=== PATIENT | male | born 1970 | race Two or more races ===

== ENCOUNTER 2018-07-14 19:43 | Inpatient (IN) | payer BC, OTHER, SELFPAY ==
[~2018-07-14] VITALS: Ht 170.2 cm; Wt 91.2 kg
[2018-07-14] MEDS ORDERED: SODIUM CHLORIDE 0.9% 1,000ML IVBOLUS ONE (20:30)
[2018-07-14] MEDS ORDERED: SODIUM CHLORIDE FLUSH 10ML SYR IVF ONE (20:30)
[2018-07-14 20:43] LABS: ALBUMIN 3.4 g/dL (3.4-5.0); ANION GAP 11 mmol/L (5-15); CALCIUM 8.8 mg/dL (8.5-10.1); CHLORIDE 112 mmol/L (98-107)
[2018-07-14 20:46] LABS: ALANINE AMINOTRANSFERASE 24 U/L (12-78); ALKALINE PHOSPHATASE 121 U/L (45-117); BILIRUBIN,TOTAL 0.5 mg/dL (0.2-1.0); CREATININE 9.14 mg/dL (0.7-1.3); TOTAL PROTEIN 8.6 g/dL (6.4-8.2)
[2018-07-14 20:50] LABS: BASOPHILS # (AUTO) 0.01 x10^3/uL (0-0.1); BASOPHILS % (AUTO) 0 % (0-1); EOSINOPHILS # (AUTO) 0.14 x10^3/uL (0-0.4); EOSINOPHILS % (AUTO) 2 % (1-7); LYMPHOCYTES # (AUTO) 0.59 x10^3/uL (1-3.4); LYMPHOCYTES % (AUTO) 8 % (22-44); MD SCAN; MEAN CORPUSCULAR HEMOGLOBIN 29.3 pg (27.5-34.5); MEAN CORPUSCULAR HGB CONC 33.9 g/dL (33.2-36.2); MEAN CORPUSCULAR VOLUME 86.4 fL (81-97); MEAN PLATELET VOLUME 11.7 fL (7.4-10.4); MONOCYTES # (AUTO) 0.52 x10^3/uL (0.2-0.8); MONOCYTES % (AUTO) 7 % (2-9); NEUTROPHILS # (AUTO) 6.26 x10^3/uL (1.8-6.8); NEUTROPHILS % (AUTO) 83 % (42-75); PLATELET COUNT 195 x10^3/uL (130-400); RED BLOOD COUNT 4.94 x10^6/uL (4.38-5.82); RED CELL DISTRIBUTION WIDTH 13.9 % (9.4-14.8)
[2018-07-14 20:52] LABS: CULTURE INDICATED? NO; MICROSCOPIC INDICATED
[2018-07-14 21:09] LABS: CLOSTRIDIUM DIFFICILE ANTIGEN NEGATIVE; CLOSTRIDIUM DIFFICILE TOXIN NEGATIVE (Negative)
[2018-07-14] MEDS ORDERED: ALLO100T30 PO (22:03)
[2018-07-14] MEDS ORDERED: FURO20TA3 PO (22:03)
[2018-07-14] MEDS ORDERED: CARV6.252 PO (22:03)
[2018-07-14] MEDS ORDERED: ATOR10TA9 PO (22:03)
[2018-07-14] MEDS ORDERED: CLON0.1T PO (22:03)
[2018-07-14] MEDS ORDERED: AMLO5TAB2 PO (22:03)
[2018-07-14 23:06] VITALS: BP 132/88
[2018-07-14 23:15] VITALS: BP 132/88
[2018-07-14] MEDS ORDERED: SODIUM CHLORIDE 0.9% 1,000 ML IV SCH (23:33)
[2018-07-15] MEDS ORDERED: hydrALAzine 20 MG/ML, 1ML IVPush PRN
[2018-07-15] MEDS ORDERED: morphine SULFATE 10 MG/ML, 1ML IVPush PRN
[2018-07-15] MEDS ORDERED: ONDANSETRON 2MG/ML, 2ML IVPush PRN
[2018-07-15] MEDS ORDERED: DOCUSATE 100 MG CAPSULE PO PRN
[2018-07-15] MEDS ORDERED: OXYcodone/APAP 5/325MG TABLET PO PRN
[2018-07-15] MEDS ORDERED: GUAIFENESIN/COD200MG-20MG/10ML LIQUID PO PRN
[2018-07-15] MEDS ORDERED: ACETAMINOPHEN 325 MG TABLET PO PRN
[2018-07-15] MEDS: HEPARIN 5,000 UNITS/ML, 1ML SQ SCH ×3 (00:06→16:00)
[2018-07-15 03:42] VITALS: BP 133/90
[2018-07-15 04:07] LABS: MICROSCOPIC INDICATED
[2018-07-15 04:10] LABS: POTASSIUM,URINE RANDOM 34 mmol/L; SODIUM,URINE RANDOM 11 mmol/L
[2018-07-15 04:12] LABS: CHLORIDE,URINE RANDOM < 10 mmol/L
[2018-07-15 04:18] LABS: CULTURE INDICATED? NO
[2018-07-15 04:24] LABS: BASOPHILS # (AUTO) 0.03 x10^3/uL (0-0.1); BASOPHILS % (AUTO) 0 % (0-1); EOSINOPHILS # (AUTO) 0.16 x10^3/uL (0-0.4); EOSINOPHILS % (AUTO) 2 % (1-7); LYMPHOCYTES % (AUTO) 16 % (22-44); MD NO; MEAN CORPUSCULAR HEMOGLOBIN 28.6 pg (27.5-34.5); MEAN CORPUSCULAR HGB CONC 33.6 g/dL (33.2-36.2); MEAN CORPUSCULAR VOLUME 85.2 fL (81-97); MEAN PLATELET VOLUME 11.4 fL (7.4-10.4); MONOCYTES # (AUTO) 0.82 x10^3/uL (0.2-0.8); MONOCYTES % (AUTO) 11 % (2-9); NEUTROPHILS # (AUTO) 5.22 x10^3/uL (1.8-6.8); NEUTROPHILS % (AUTO) 70 % (42-75); PLATELET COUNT 174 x10^3/uL (130-400); RED BLOOD COUNT 4.32 x10^6/uL (4.38-5.82); RED CELL DISTRIBUTION WIDTH 14.2 % (9.4-14.8)
[2018-07-15 04:38] LABS: ANION GAP 10 mmol/L (5-15); CALCIUM 8.4 mg/dL (8.5-10.1); CHLORIDE 113 mmol/L (98-107)
[2018-07-15 04:41] LABS: CREATININE 9.13 mg/dL (0.7-1.3)
[2018-07-15 08:10] VITALS: BP 138/93
[2018-07-15] MEDS ORDERED: ALLOPURINOL 100 MG TABLET PO SCH (09:00)
[2018-07-15] MEDS: CARVEDILOL 6.25 MG TABLET PO SCH ×2 (09:53→20:53)
[2018-07-15] MEDS: SODIUM CHLORIDE 0.45% 1,000 ML IV SCH ×2 (09:54→17:39)
[2018-07-15] MEDS ORDERED: PHARMACY MAY ADJ FOR RENAL FX MC PRN (11:30)
[2018-07-15] MEDS: AMLODIPINE 5 MG TABLET PO SCH (12:12)
[2018-07-15 14:00] VITALS: BP 159/93
[2018-07-15 19:33] VITALS: BP 131/87
[2018-07-15] MEDS: SODIUM BICARBONATE 650 MG TABLET PO SCH (20:52)
[2018-07-15] MEDS ORDERED: ATORVASTATIN 10 MG TABLET PO SCH (21:00)
[2018-07-16 01:22] VITALS: BP 131/66
[2018-07-16] MEDS: SODIUM CHLORIDE 0.45% 1,000 ML IV SCH ×2 (01:47→09:58)
[2018-07-16 05:21] LABS: CHLORIDE 112 mmol/L (98-107)
[2018-07-16 05:28] LABS: BASOPHILS # (AUTO) 0.03 x10^3/uL (0-0.1); BASOPHILS % (AUTO) 1 % (0-1); EOSINOPHILS # (AUTO) 0.24 x10^3/uL (0-0.4); EOSINOPHILS % (AUTO) 4 % (1-7); LYMPHOCYTES # (AUTO) 1.34 x10^3/uL (1-3.4); LYMPHOCYTES % (AUTO) 25 % (22-44); MD NO; MEAN CORPUSCULAR HEMOGLOBIN 28.9 pg (27.5-34.5); MEAN CORPUSCULAR HGB CONC 33.6 g/dL (33.2-36.2); MEAN CORPUSCULAR VOLUME 85.8 fL (81-97); MEAN PLATELET VOLUME 11.1 fL (7.4-10.4); MONOCYTES # (AUTO) 0.53 x10^3/uL (0.2-0.8); MONOCYTES % (AUTO) 10 % (2-9); NEUTROPHILS # (AUTO) 3.32 x10^3/uL (1.8-6.8); NEUTROPHILS % (AUTO) 61 % (42-75); PLATELET COUNT 152 x10^3/uL (130-400); RED BLOOD COUNT 3.83 x10^6/uL (4.38-5.82); RED CELL DISTRIBUTION WIDTH 14.1 % (9.4-14.8)
[2018-07-16 05:30] LABS: ALANINE AMINOTRANSFERASE 18 U/L (12-78); ALBUMIN 2.7 g/dL (3.4-5.0); ALKALINE PHOSPHATASE 103 U/L (45-117); ANION GAP 9 mmol/L (5-15); BILIRUBIN,TOTAL 0.4 mg/dL (0.2-1.0); CALCIUM 8.3 mg/dL (8.5-10.1); CREATININE 8.69 mg/dL (0.7-1.3); TOTAL PROTEIN 6.6 g/dL (6.4-8.2)
[2018-07-16 06:51] VITALS: BP 133/76
[2018-07-16] MEDS: HEPARIN 5,000 UNITS/ML, 1ML SQ SCH ×2 (08:00)
[2018-07-16] MEDS ORDERED: ALLOPURINOL 100 MG TABLET PO SCH (09:00)
[2018-07-16] MEDS: SODIUM BICARBONATE 650 MG TABLET PO SCH (09:59)
[2018-07-16] MEDS: CARVEDILOL 6.25 MG TABLET PO SCH (09:59)
[2018-07-16] MEDS: AMLODIPINE 5 MG TABLET PO SCH (09:59)
[2018-07-16] MEDS ORDERED: ERGOCALCIFEROL 50,000 UNIT CAPSULE PO SCH (10:00)
[2018-07-16] MEDS ORDERED: CALCITRIOL 0.25 MCG CAPSULE PO SCH (10:00)
[2018-07-16] MEDS ORDERED: SODI650T PO (12:14)
[2018-07-16] MEDS ORDERED: CALC0.25 PO (12:14)
[2018-07-16] MEDS ORDERED: ERGO500017 PO (12:14)
[2018-07-16] MEDS ORDERED: ALLO100T30 PO (12:14)
[2018-07-16 12:40] VITALS: BP 136/85
== END 2018-07-16 15:00 | disposition home or self-care (01) | DRG 683 ==
LOC: ED 20:07 → 3NE 22:08
PROVIDERS: ADMIT Internal Medicine; ATTEND Internal Medicine
DX: N17.9 Acute kidney failure, unspecified (principal); I12.0 Hypertensive chronic kidney disease with stage 5 chronic kidney disease or end stage renal disease; E87.2 Acidosis; E44.1 Mild protein-calorie malnutrition; N25.0 Renal osteodystrophy; N25.81 Secondary hyperparathyroidism of renal origin; E66.9 Obesity, unspecified; N27.1 Small kidney, bilateral; D63.1 Anemia in chronic kidney disease; N18.6 End stage renal disease; E86.0 Dehydration; E78.5 Hyperlipidemia, unspecified; M10.9 Gout, unspecified; Z82.49 Family history of ischemic heart disease and other diseases of the circulatory system; Z90.49 Acquired absence of other specified parts of digestive tract; Z83.3 Family history of diabetes mellitus; Z82.3 Family history of stroke; Z87.442 Personal history of urinary calculi; Z68.31 Body mass index [BMI] 31.0-31.9, adult
CPT/HCPCS: 36415; 76770; 80048; 80053; 80074; 81001; 82306; 82436; 82570; 83690; 83735; 83970; 84100; 84133; 84300; 84550; 85025; 86480; 86706; 87205; 87324; 99285; J1644; J7030

== ENCOUNTER 2018-10-15 05:39 | Day surgery (SDC) | payer BC ==
[~2018-10-15] VITALS: Ht 170.2 cm; Wt 87.3 kg
[~2018-10-15 05:39] MED LIST: ALLO100T30 PO; ALLO100T64 PO; AMLO5TAB7 PO; ATOR10TA9 PO; CALC0.25 PO; CARV6.252 PO; CLON0.1T PO; ERGO500017 PO; FURO20TA3 PO; SODI650T PO
[2018-10-15] MEDS ORDERED: BUPIVACAINE/PF-EPI 0.5% 1:200K ONE (06:58)
[2018-10-15 07:05] VITALS: BP_SYST 186; BP_SYST 187; BP_SYST 201; BP_DIAS 125; BP_DIAS 126
[2018-10-15] MEDS ORDERED: LACTATED RINGERS 1,000 ML IV SCH (07:06)
[2018-10-15] MEDS ORDERED: hydrALAzine 20 MG/ML, 1ML IV ONE (07:38)
[2018-10-15] MEDS ORDERED: SODIUM CHLORIDE 0.9% 1,000 ML IV SCH (07:58)
[2018-10-15 08:29] VITALS: BP 181/117
== END 2018-10-15 08:50 | disposition home or self-care (01) ==
LOC: OUT 05:39
PROVIDERS: ATTEND Surgery
DX: I12.0 Hypertensive chronic kidney disease with stage 5 chronic kidney disease or end stage renal disease (principal); Z53.9 Procedure and treatment not carried out, unspecified reason; N18.6 End stage renal disease
CPT/HCPCS: 36415; 80047; J0360; J7030; J7120

== ENCOUNTER 2018-11-18 11:01 | Inpatient (IN) | payer BC ==
[~2018-11-18] VITALS: Ht 170.2 cm; Wt 90.1 kg
[~2018-11-18 11:01] MED LIST changes: +AMLO-150 PO; -AMLO5TAB7 PO; -CLON0.1T PO; +CLON0.1T22 PO
[2018-11-18 12:26] LABS: BASOPHILS # (AUTO) 0.06 x10^3/uL (0-0.1); BASOPHILS % (AUTO) 1 % (0-1); EOSINOPHILS % (AUTO) 5 % (1-7); LYMPHOCYTES # (AUTO) 0.77 x10^3/uL (1-3.4); LYMPHOCYTES % (AUTO) 12 % (22-44); MD NO; MEAN CORPUSCULAR HEMOGLOBIN 29.9 pg (27.5-34.5); MEAN CORPUSCULAR HGB CONC 34.6 g/dL (33.2-36.2); MEAN CORPUSCULAR VOLUME 86.5 fL (81-97); MONOCYTES # (AUTO) 0.34 x10^3/uL (0.2-0.8); MONOCYTES % (AUTO) 5 % (2-9); NEUTROPHILS # (AUTO) 4.79 x10^3/uL (1.8-6.8); NEUTROPHILS % (AUTO) 77 % (42-75); PLATELET COUNT 159 x10^3/uL (130-400); RED BLOOD COUNT 2.84 x10^6/uL (4.38-5.82); RED CELL DISTRIBUTION WIDTH 15.4 % (9.4-14.8)
[2018-11-18 12:33] LABS: ALBUMIN 3.3 g/dL (3.4-5.0); ANION GAP 11 mmol/L (5-15); CALCIUM 7.3 mg/dL (8.5-10.1); CHLORIDE 108 mmol/L (98-107)
[2018-11-18 12:40] LABS: ALANINE AMINOTRANSFERASE 28 U/L (12-78); ALKALINE PHOSPHATASE 110 U/L (45-117); BILIRUBIN,TOTAL 0.5 mg/dL (0.2-1.0); TOTAL PROTEIN 7.1 g/dL (6.4-8.2); TROPONIN I < 0.015 ng/mL (0.000-0.045)
[2018-11-18 15:00] VITALS: BP 148/93
[2018-11-18] MEDS ORDERED: LABETALOL 5MG/ML, 20ML IVPush PRN (15:00)
[2018-11-18] MEDS ORDERED: ACETAMINOPHEN 325 MG TABLET PO PRN (15:00)
[2018-11-18] MEDS ORDERED: DOXA2TAB9 PO (15:11)
[2018-11-18] MEDS ORDERED: FURO20TA3 PO (15:11)
[2018-11-18] MEDS ORDERED: CLON0.2T PO (15:33)
[2018-11-18 15:45] LABS: % IRON SATURATION 16 % (20-55); IRON LEVEL 45 mcg/dL (65-175)
[2018-11-18] MEDS ORDERED: ERGOCALCIFEROL 50,000 UNIT CAPSULE PO SCH (16:00)
[2018-11-18 16:27] LABS: TOTAL IRON BINDING CAPACITY 288 mcg/dL (250-450)
[2018-11-18] MEDS: HEPARIN 5,000 UNITS/ML, 1ML SQ SCH (16:36)
[2018-11-18] MEDS ORDERED: SEVELAMER HCL 800MG TABLET PO SCH (18:30)
[2018-11-18] MEDS: SEVELAMER CARBONATE 800MG TAB PO SCH (18:39)
[2018-11-18 19:58] VITALS: BP_SYST 137; BP_SYST 142; BP_DIAS 84; BP_DIAS 85; BP_DIAS 86
[2018-11-18] MEDS ORDERED: SODIUM BICARBONATE 650 MG TABLET PO SCH (21:00)
[2018-11-18] MEDS: CARVEDILOL 6.25 MG TABLET PO SCH (21:36)
[2018-11-18] MEDS: ATORVASTATIN 10 MG TABLET PO SCH (21:36)
[2018-11-19] MEDS: HEPARIN 5,000 UNITS/ML, 1ML SQ SCH ×3 (00:18→17:13)
[2018-11-19 01:08] VITALS: BP 145/88
[2018-11-19] MEDS ORDERED: FLUTICASONE NASAL SPRAY 16GM NAS PRN (02:00)
[2018-11-19 05:47] LABS: BASOPHILS # (AUTO) 0.06 x10^3/uL (0-0.1); BASOPHILS % (AUTO) 1 % (0-1); EOSINOPHILS # (AUTO) 0.44 x10^3/uL (0-0.4); EOSINOPHILS % (AUTO) 7 % (1-7); LYMPHOCYTES # (AUTO) 1.31 x10^3/uL (1-3.4); LYMPHOCYTES % (AUTO) 20 % (22-44); MD NO; MEAN CORPUSCULAR HEMOGLOBIN 29.5 pg (27.5-34.5); MEAN CORPUSCULAR HGB CONC 33.9 g/dL (33.2-36.2); MEAN CORPUSCULAR VOLUME 87.1 fL (81-97); MEAN PLATELET VOLUME 10.5 fL (7.4-10.4); MONOCYTES # (AUTO) 0.44 x10^3/uL (0.2-0.8); MONOCYTES % (AUTO) 7 % (2-9); NEUTROPHILS # (AUTO) 4.34 x10^3/uL (1.8-6.8); NEUTROPHILS % (AUTO) 66 % (42-75); PLATELET COUNT 153 x10^3/uL (130-400); RED BLOOD COUNT 2.81 x10^6/uL (4.38-5.82); RED CELL DISTRIBUTION WIDTH 15.4 % (9.4-14.8)
[2018-11-19 05:57] LABS: ALBUMIN 3.2 g/dL (3.4-5.0); ANION GAP 13 mmol/L (5-15); CALCIUM 7.2 mg/dL (8.5-10.1); CHLORIDE 108 mmol/L (98-107)
[2018-11-19 06:03] LABS: ALANINE AMINOTRANSFERASE 29 U/L (12-78); ALKALINE PHOSPHATASE 111 U/L (45-117); BILIRUBIN,TOTAL 0.3 mg/dL (0.2-1.0); TOTAL PROTEIN 6.8 g/dL (6.4-8.2)
[2018-11-19 06:58] VITALS: BP_SYST 138; BP_SYST 139; BP_SYST 140; BP_DIAS 101; BP_DIAS 95
[2018-11-19] MEDS: SEVELAMER CARBONATE 800MG TAB PO SCH ×3 (07:56→17:45)
[2018-11-19] MEDS ORDERED: SEVELAMER HCL 800MG TABLET PO SCH (08:00)
[2018-11-19] MEDS: ALLOPURINOL 100 MG TABLET PO SCH (08:50)
[2018-11-19] MEDS: AMLODIPINE 10 MG TAB PO SCH (08:50)
[2018-11-19] MEDS: CARVEDILOL 6.25 MG TABLET PO SCH ×2 (08:51→21:28)
[2018-11-19] MEDS: IRON SUCROSE COMPLEX 100MG/5ML IV SCH (08:51)
[2018-11-19] MEDS ORDERED: LIDOCAINE-MPF 1%, 5ML ONE (10:55)
[2018-11-19] MEDS ORDERED: FENTANYL PF 100 MCG/2ML ONE (11:09)
[2018-11-19] MEDS ORDERED: MIDAZOLAM 1 MG/ML, 5ML ONE (11:09)
[2018-11-19] MEDS ORDERED: NALOXONE 1 MG/ML, 2ML ONE (11:09)
[2018-11-19] MEDS ORDERED: FLUMAZENIL 0.1 MG/1 ML, 5ML ONE (11:09)
[2018-11-19 12:27] LABS: HEMOGLOBIN A1C 4.8 % (4.2-6.3)
[2018-11-19 14:00] VITALS: BP 130/90
[2018-11-19 20:00] VITALS: BP 145/85
[2018-11-19] MEDS: ATORVASTATIN 10 MG TABLET PO SCH (21:28)
[2018-11-20] MEDS: HEPARIN 5,000 UNITS/ML, 1ML SQ SCH ×3 (00:29→17:55)
[2018-11-20 02:00] VITALS: BP 148/91
[2018-11-20 06:07] LABS: BASOPHILS # (AUTO) 0.06 x10^3/uL (0-0.1); BASOPHILS % (AUTO) 1 % (0-1); EOSINOPHILS # (AUTO) 0.27 x10^3/uL (0-0.4); EOSINOPHILS % (AUTO) 4 % (1-7); LYMPHOCYTES # (AUTO) 1.28 x10^3/uL (1-3.4); LYMPHOCYTES % (AUTO) 17 % (22-44); MD NO; MEAN CORPUSCULAR HEMOGLOBIN 29.2 pg (27.5-34.5); MEAN CORPUSCULAR HGB CONC 33.8 g/dL (33.2-36.2); MEAN CORPUSCULAR VOLUME 86.5 fL (81-97); MONOCYTES # (AUTO) 0.45 x10^3/uL (0.2-0.8); MONOCYTES % (AUTO) 6 % (2-9); NEUTROPHILS # (AUTO) 5.65 x10^3/uL (1.8-6.8); NEUTROPHILS % (AUTO) 73 % (42-75); PLATELET COUNT 168 x10^3/uL (130-400); RED BLOOD COUNT 2.94 x10^6/uL (4.38-5.82); RED CELL DISTRIBUTION WIDTH 15.2 % (9.4-14.8)
[2018-11-20 06:18] LABS: ALANINE AMINOTRANSFERASE 25 U/L (12-78); ALBUMIN 3.1 g/dL (3.4-5.0); ANION GAP 11 mmol/L (5-15); CALCIUM 7.7 mg/dL (8.5-10.1); CHLORIDE 106 mmol/L (98-107)
[2018-11-20 06:21] LABS: ALKALINE PHOSPHATASE 106 U/L (45-117); BILIRUBIN,TOTAL 0.2 mg/dL (0.2-1.0); CREATININE 9.42 mg/dL (0.7-1.3); TOTAL PROTEIN 6.8 g/dL (6.4-8.2)
[2018-11-20 06:42] VITALS: BP 146/86
[2018-11-20] MEDS: SEVELAMER CARBONATE 800MG TAB PO SCH ×3 (09:18→19:12)
[2018-11-20] MEDS: IRON SUCROSE COMPLEX 100MG/5ML IV SCH (09:19)
[2018-11-20] MEDS: AMLODIPINE 10 MG TAB PO SCH (09:20)
[2018-11-20] MEDS: CARVEDILOL 6.25 MG TABLET PO SCH ×2 (09:20→20:49)
[2018-11-20] MEDS: CHOLECALCIFEROL 1,000 UNIT TABLET PO SCH (09:20)
[2018-11-20] MEDS: ALLOPURINOL 100 MG TABLET PO SCH (09:20)
[2018-11-20 12:39] VITALS: BP 139/88
[2018-11-20 20:00] VITALS: BP 146/87
[2018-11-20] MEDS: ATORVASTATIN 10 MG TABLET PO SCH (20:49)
[2018-11-21 02:00] VITALS: BP 137/89
[2018-11-21] MEDS: HEPARIN 5,000 UNITS/ML, 1ML SQ SCH ×3 (02:07→20:25)
[2018-11-21 05:42] LABS: BASOPHILS # (AUTO) 0.06 x10^3/uL (0-0.1); BASOPHILS % (AUTO) 1 % (0-1); EOSINOPHILS # (AUTO) 0.29 x10^3/uL (0-0.4); EOSINOPHILS % (AUTO) 4 % (1-7); LYMPHOCYTES # (AUTO) 1.13 x10^3/uL (1-3.4); LYMPHOCYTES % (AUTO) 15 % (22-44); MD NO; MEAN CORPUSCULAR HEMOGLOBIN 29.1 pg (27.5-34.5); MEAN CORPUSCULAR HGB CONC 33.4 g/dL (33.2-36.2); MEAN PLATELET VOLUME 10.9 fL (7.4-10.4); MONOCYTES % (AUTO) 8 % (2-9); NEUTROPHILS # (AUTO) 5.32 x10^3/uL (1.8-6.8); NEUTROPHILS % (AUTO) 72 % (42-75); PLATELET COUNT 162 x10^3/uL (130-400); RED BLOOD COUNT 2.95 x10^6/uL (4.38-5.82); RED CELL DISTRIBUTION WIDTH 15.2 % (9.4-14.8)
[2018-11-21 05:54] LABS: ALBUMIN 3.2 g/dL (3.4-5.0); ANION GAP 10 mmol/L (5-15); CALCIUM 7.9 mg/dL (8.5-10.1); CHLORIDE 105 mmol/L (98-107)
[2018-11-21 05:57] LABS: ALANINE AMINOTRANSFERASE 22 U/L (12-78); ALKALINE PHOSPHATASE 103 U/L (45-117); BILIRUBIN,TOTAL 0.3 mg/dL (0.2-1.0)
[2018-11-21 06:48] VITALS: BP 147/95
[2018-11-21] MEDS: SEVELAMER CARBONATE 800MG TAB PO SCH ×3 (08:32→17:15)
[2018-11-21] MEDS: CHOLECALCIFEROL 1,000 UNIT TABLET PO SCH (08:33)
[2018-11-21] MEDS: CARVEDILOL 6.25 MG TABLET PO SCH ×2 (08:33→20:25)
[2018-11-21] MEDS: IRON SUCROSE COMPLEX 100MG/5ML IV SCH (08:33)
[2018-11-21] MEDS: ALLOPURINOL 100 MG TABLET PO SCH (08:33)
[2018-11-21] MEDS: AMLODIPINE 10 MG TAB PO SCH (08:34)
[2018-11-21 10:42] LABS: QUANTIFERON TB Ag1-NIL 1.98 (0.000-0.000)
[2018-11-21 14:16] VITALS: BP 118/79
[2018-11-21 20:00] VITALS: BP 144/92
[2018-11-21] MEDS: ATORVASTATIN 10 MG TABLET PO SCH (20:25)
[2018-11-22 02:00] VITALS: BP 147/91
[2018-11-22] MEDS: HEPARIN 5,000 UNITS/ML, 1ML SQ SCH ×3 (05:52→21:00)
[2018-11-22 07:50] VITALS: BP 142/94
[2018-11-22] MEDS: CARVEDILOL 6.25 MG TABLET PO SCH ×2 (08:15→21:30)
[2018-11-22] MEDS: CHOLECALCIFEROL 1,000 UNIT TABLET PO SCH (08:15)
[2018-11-22] MEDS: SEVELAMER CARBONATE 800MG TAB PO SCH ×3 (08:15→17:00)
[2018-11-22] MEDS: IRON SUCROSE COMPLEX 100MG/5ML IV SCH (08:15)
[2018-11-22] MEDS: AMLODIPINE 10 MG TAB PO SCH (08:16)
[2018-11-22] MEDS: ALLOPURINOL 100 MG TABLET PO SCH (08:18)
[2018-11-22 15:03] VITALS: BP 141/86
[2018-11-22] MEDS ORDERED: OXYcodone 5 MG/5 ML ORAL.SOL UDC PO PRN (18:00)
[2018-11-22 19:42] VITALS: BP 148/93
[2018-11-22] MEDS: ATORVASTATIN 10 MG TABLET PO SCH (21:30)
[2018-11-23 01:04] VITALS: BP 160/96
[2018-11-23] MEDS: HEPARIN 5,000 UNITS/ML, 1ML SQ SCH (05:00)
[2018-11-23 06:46] VITALS: BP 150/99
[2018-11-23] MEDS ORDERED: ERGOCALCIFEROL 50,000 UNIT CAPSULE PO SCH (07:00)
[2018-11-23] MEDS: IRON SUCROSE COMPLEX 100MG/5ML IV SCH (08:08)
[2018-11-23] MEDS: ALLOPURINOL 100 MG TABLET PO SCH (08:08)
[2018-11-23] MEDS ORDERED: CARVEDILOL 12.5 MG TABLET PO SCH (11:00)
[2018-11-23] MEDS ORDERED: CARV12.543 PO (12:12)
[2018-11-23] MEDS ORDERED: SEVE800T8 PO (12:12)
[2018-11-23] MEDS ORDERED: ERGO500017 PO (12:12)
[2018-11-23] MEDS: SEVELAMER CARBONATE 800MG TAB PO SCH (12:18)
[2018-11-23] MEDS: AMLODIPINE 10 MG TAB PO SCH (12:20)
== END 2018-11-23 13:49 | disposition home or self-care (01) | DRG 674 ==
LOC: ED 12:46 → EDIP 13:52 → 3NW 14:33 → 4EST 11-19 12:42 → DCLOUNGE 11-23 13:30
PROVIDERS: ADMIT Hospitalist; ATTEND Hospitalist
PROC: 0JH63XZ Insertion of Tunneled Vascular Access Device into Chest Subcutaneous Tissue and Fascia, Percutaneous Approach (ICD-10-PCS; principal; 2018-11-19)
PROC: 02H633Z Insertion of Infusion Device into Right Atrium, Percutaneous Approach (ICD-10-PCS; 2018-11-19)
PROC: 5A1D70Z Performance of Urinary Filtration, Intermittent, Less than 6 Hours Per Day (ICD-10-PCS; 2018-11-19)
PROC: 5A1D70Z Performance of Urinary Filtration, Intermittent, Less than 6 Hours Per Day (ICD-10-PCS; 2018-11-20)
PROC: 5A1D70Z Performance of Urinary Filtration, Intermittent, Less than 6 Hours Per Day (ICD-10-PCS; 2018-11-21)
PROC: 5A1D70Z Performance of Urinary Filtration, Intermittent, Less than 6 Hours Per Day (ICD-10-PCS; 2018-11-23)
DX: N17.9 Acute kidney failure, unspecified (principal); E87.2 Acidosis; I12.0 Hypertensive chronic kidney disease with stage 5 chronic kidney disease or end stage renal disease; I82.612 Acute embolism and thrombosis of superficial veins of left upper extremity; R42 Dizziness and giddiness; N18.6 End stage renal disease; D63.1 Anemia in chronic kidney disease; R73.9 Hyperglycemia, unspecified; E55.9 Vitamin D deficiency, unspecified; E78.5 Hyperlipidemia, unspecified; I77.810 Thoracic aortic ectasia; M10.9 Gout, unspecified; Z82.3 Family history of stroke; Z87.442 Personal history of urinary calculi; Z90.49 Acquired absence of other specified parts of digestive tract; Z79.899 Other long term (current) drug therapy
CPT/HCPCS: 0399T; 36415; 36565; 71045; 76770; 76937; 77001; 80053; 82306; 82728; 83036; 83540; 83550; 83735; 83970; 84100; 84484; 84550; 85025; 86480; 86706; 86708; 87340; 93005; 93306; 93880; 99156; 99157; 99285; C1894; G0378; J1644; J1756; J2250; J3010; C1750; J1642; J2310

== ENCOUNTER 2019-07-13 14:43 | Emergency (ER) | payer BC, MEDICARE ==
[~2019-07-13] VITALS: Ht 170.2 cm; Wt 87.0 kg
[2019-07-13 15:10] VITALS: BP 168/106
== END 2019-07-13 16:16 | disposition home or self-care (01) ==
LOC: ED 15:14
DX: S61.211A Laceration without foreign body of left index finger without damage to nail, initial encounter (principal); X50.1XXA Overexertion from prolonged static or awkward postures, initial encounter; Y93.89 Activity, other specified; Y92.009 Unspecified place in unspecified non-institutional (private) residence as the place of occurrence of the external cause; Y99.8 Other external cause status; I12.0 Hypertensive chronic kidney disease with stage 5 chronic kidney disease or end stage renal disease; N18.6 End stage renal disease; Z99.2 Dependence on renal dialysis
CPT/HCPCS: 12042; 99284

== ENCOUNTER 2019-12-15 14:50 | Emergency (ER) | payer BC, MEDICARE ==
[~2019-12-15] VITALS: Ht 170.2 cm; Wt 90.4 kg
[~2019-12-15 14:50] MED LIST changes: +CARV12.543 PO; +CLON0.2T PO; +DOXA2TAB9 PO; +SEVE800T8 PO
[2019-12-15 14:52] VITALS: BP 137/79
--- NOTE | 2019-12-15 15:18 | NUR ---
PT STATES LEFT ABDOMINAL PAIN THAT STARTED 2 DAYS AGO DURING PERITONEAL DIALYSIS. PAIN AT ITS WORSE YESTERDAY.
[2019-12-15 15:48] LABS: BASOPHILS # (AUTO) 0.05 x10^3/uL (0-0.1); BASOPHILS % (AUTO) 1 % (0-1); EOSINOPHILS # (AUTO) 0.25 x10^3/uL (0-0.4); EOSINOPHILS % (AUTO) 4 % (1-7); LYMPHOCYTES # (AUTO) 0.83 x10^3/uL (1-3.4); LYMPHOCYTES % (AUTO) 14 % (22-44); MD NO; MEAN CORPUSCULAR HEMOGLOBIN 31.1 pg (27.5-34.5); MEAN CORPUSCULAR HGB CONC 33.1 g/dL (33.2-36.2); MEAN CORPUSCULAR VOLUME 94.1 fL (81-97); MEAN PLATELET VOLUME 10.4 fL (7.4-10.4); MONOCYTES # (AUTO) 0.43 x10^3/uL (0.2-0.8); MONOCYTES % (AUTO) 7 % (2-9); NEUTROPHILS # (AUTO) 4.37 x10^3/uL (1.8-6.8); NEUTROPHILS % (AUTO) 74 % (42-75); PLATELET COUNT 112 x10^3/uL (130-400); RED BLOOD COUNT 3.68 x10^6/uL (4.38-5.82); RED CELL DISTRIBUTION WIDTH 13.9 % (9.4-14.8)
[2019-12-15 15:54] LABS: ALBUMIN 3.7 g/dL (3.4-5.0); ANION GAP 11 mmol/L (5-15); CALCIUM 8.6 mg/dL (8.5-10.1); CHLORIDE 108 mmol/L (98-107)
[2019-12-15 15:58] LABS: MICROSCOPIC AUTO
[2019-12-15 16:05] LABS: CULTURE INDICATED? NO
--- NOTE | 2019-12-15 16:18 | NUR ---
CT COMPLETED. AWAITING RE-EVAL. NO DISTRESS
--- NOTE | 2019-12-15 16:56 | NUR ---
dr son spoke with dr usha baldwin
== END 2019-12-15 17:09 | disposition home or self-care (01) ==
LOC: ED 16:30
DX: T82.42XA Displacement of vascular dialysis catheter, initial encounter (principal); I12.0 Hypertensive chronic kidney disease with stage 5 chronic kidney disease or end stage renal disease; N18.6 End stage renal disease; Z99.2 Dependence on renal dialysis; Z90.49 Acquired absence of other specified parts of digestive tract; Z90.89 Acquired absence of other organs
CPT/HCPCS: 36415; 74176; 80048; 81001; 82040; 85025; 99284

== ENCOUNTER → 2021-01-04 | Outpatient (CLI) | payer BC, MEDICARE | END | disposition home or self-care (01) | LOC: RAD 10:31 | PROVIDERS: ATTEND Internal Medicine Nephrology | DX: E21.0 Primary hyperparathyroidism (principal); I12.9 Hypertensive chronic kidney disease with stage 1 through stage 4 chronic kidney disease, or unspecified chronic kidney disease; N18.2 Chronic kidney disease, stage 2 (mild); D89.9 Disorder involving the immune mechanism, unspecified; Z94.0 Kidney transplant status | CPT/HCPCS: 78070; A9500 ==